=== PATIENT | female | born 1960 | race Caucasian/White ===

== ENCOUNTER 2024-09-30 06:17 | Day surgery (SDC) | payer OTHER, SELFPAY | END 2024-09-30 12:41 | disposition home or self-care (01) | LOC: GI 06:17 | PROVIDERS: ATTENDING PHYSICIAN Specialist | DX: Z12.11 Encounter for screening for malignant neoplasm of colon (principal); R19.5 Other fecal abnormalities; D12.0 Benign neoplasm of cecum; D12.2 Benign neoplasm of ascending colon; D12.8 Benign neoplasm of rectum | CPT/HCPCS: 45385; 88305 ==

== ENCOUNTER 2024-12-10 06:33 | Day surgery (SDC) | payer MEDICARE, SELFPAY ==
[2024-12-10 10:04] VITALS: BMI 23.8
[2024-12-10 10:06] VITALS: BMI 23.8
[2024-12-10 10:07] VITALS: BP 116/70
[2024-12-10 12:43] VITALS: BP 113/81
[2024-12-10 12:45] VITALS: BP 108/91
[2024-12-10 13:00] VITALS: BP 111/77
[2024-12-10 13:14] VITALS: BP 116/80
== END 2024-12-10 13:20 | disposition home or self-care (01) ==
LOC: SDS 06:33
PROVIDERS: ATTENDING PHYSICIAN Internal Medicine Gastroenterology
DX: C20 Malignant neoplasm of rectum (principal); D12.8 Benign neoplasm of rectum; K62.1 Rectal polyp; K64.0 First degree hemorrhoids
CPT/HCPCS: 45349; 88305; 88342

== ENCOUNTER 2025-08-22 06:15 | Day surgery (SDC) | payer MEDICARE, SELFPAY ==
[2025-08-22 09:02] VITALS: BMI 24.8
[2025-08-22 09:06] VITALS: BP 125/84
[2025-08-22 09:11] VITALS: BMI 24.8
[2025-08-22 09:12] VITALS: BMI 24.8
== END 2025-08-22 10:56 | disposition home or self-care (01) ==
LOC: SDS 06:15
PROVIDERS: ATTENDING PHYSICIAN Internal Medicine Gastroenterology
DX: Z12.11 Encounter for screening for malignant neoplasm of colon (principal); K64.0 First degree hemorrhoids; Z85.048 Personal history of other malignant neoplasm of rectum, rectosigmoid junction, and anus; Z98.890 Other specified postprocedural states; K62.1 Rectal polyp
CPT/HCPCS: 45331; 88305